=== PATIENT | male | born 1965 | race Caucasian/White ===

== ENCOUNTER → 2023-11-06 12:00 | Outpatient (REF) | payer BC, SELFPAY | LOC: MRI 3T 12:00 | PROVIDERS: ATTENDING PHYSICIAN Specialist; FAMILY PHYSICIAN Physician Assistant Medical | DX: R97.20 Elevated prostate specific antigen [PSA] (principal) | CPT/HCPCS: 72197; A9575 ==

== ENCOUNTER → 2025-01-23 08:25 | Outpatient (REF) | payer BC, SELFPAY | LOC: PAVMRI 08:25 | PROVIDERS: ATTENDING PHYSICIAN Neurological Surgery | DX: D32.9 Benign neoplasm of meninges, unspecified (principal); G93.89 Other specified disorders of brain | CPT/HCPCS: 70553; A9575 ==